=== PATIENT | male | born 1955 | race Caucasian/White ===

== ENCOUNTER 2016-10-18 07:11 | Emergency (ER) | payer BC ==
[~2016-10-18 07:11] MED LIST: ATIVAN0.5 MG PO; CELEBREX200 MG PO; COUMADIN10 MG; COUMADIN7.5 MG PO; FLOMAX 0.40.4 MG/CAP PO; LASIX20 M1 PO; LOVENOX 100100 MG/ML SQ; METOPROLOL SUC100 M1 PO; NORCO 325 MG-51 TA1 PO; NORCO 325 MG-51 TAB PO; PERCOCET 325 MG1 TA2 PO; TOPROL XL25 MG PO; ULTRAM 50MG TAB50 MG PO; WARFARIN SOD5 MG PO
[2016-10-18] MEDS ORDERED: PERCOCET 325 MG1 TA2 PO (11:17)
[2016-10-18] MEDS ORDERED: BACTRIM DS TAB1 EACH PO (11:17)
[2016-10-18 11:20] VITALS: BP 105/67
== END 2016-10-18 11:24 | disposition home or self-care (01) ==
LOC: ED 07:11
DX: L03.115 Cellulitis of right lower limb (principal); Z79.01 Long term (current) use of anticoagulants; Z86.718 Personal history of other venous thrombosis and embolism; I10 Essential (primary) hypertension; M54.5 Low back pain; G89.29 Other chronic pain; F17.210 Nicotine dependence, cigarettes, uncomplicated
CPT/HCPCS: J0696; J1885; J3010

== ENCOUNTER → 2017-05-02 | Outpatient (CLI) | payer BC ==
[~2017-05-02] MED LIST changes: +BACTRIM DS TAB1 EACH PO
== END ==
LOC: RAD 09:30
DX: I65.22 Occlusion and stenosis of left carotid artery (principal); Z87.891 Personal history of nicotine dependence

== ENCOUNTER 2017-09-23 20:44 | Emergency (ER) | payer BC ==
[~2017-09-23] VITALS: Ht 182.9 cm; Wt 81.8 kg
[2017-09-23] MEDS ORDERED: COUMADIN 1MG1 MG/TAB PO ×2 (21:07→21:08)
[2017-09-23 21:57] LABS: EOS # 0.2 (0.04-0.40); EOS % 3.1 % (0.0-4.0); HEMATOCRIT 49.4 % (42.0-52.0); HEMOGLOBIN 16.3 g/dL (13.5-18.0); LYMPH# 2.1 (1.50-4.00); MEAN CELL VOLUME 97 fl (78-100); MEAN CORPUSCULAR HEMOGLOBIN 32 pg (27-31); MEAN CORPUSCULAR HGB CONC 33 g/dL (33-37); MEAN PLATELET VOLUME 9.4 fl (7.4-10.4); MONO # 0.9 (0.20-0.80); NEU # 4.5 (1.40-6.50); PLATELET COUNT 196 K/mm3 (130-400); RED BLOOD COUNT 5.07 M/mm3 (4.20-5.60); RED CELL DISTRIBUTION WIDTH 14.9 % (11.5-14.5); WHITE BLOOD COUNT 7.8 K/mm3 (4.8-10.8)
[2017-09-23 22:00] LABS: BUN/CREATININE RATIO 14.5 (6.0-26.0); CALCIUM 8.7 mg/dL (8.4-10.2); POTASSIUM 4.7 mmol/L (3.6-5.0); TOTAL BILIRUBIN 0.7 mg/dL (0.2-1.3)
[2017-09-23 22:11] LABS: PROTHROMBIN TIME 25.4 SECONDS (9.0-12.0)
[2017-09-23 22:18] LABS: D-DIMER 0.6 mg/L FEU (0.15-0.50)
[2017-09-23 23:55] VITALS: BP 115/72
== END 2017-09-23 23:55 | disposition home or self-care (01) ==
LOC: ED 20:44
PROVIDERS: Physician Assistant
DX: M79.662 Pain in left lower leg (principal); Z79.01 Long term (current) use of anticoagulants; J43.9 Emphysema, unspecified; D68.2 Hereditary deficiency of other clotting factors; Z86.718 Personal history of other venous thrombosis and embolism; F17.210 Nicotine dependence, cigarettes, uncomplicated
CPT/HCPCS: Q9967

== ENCOUNTER 2017-09-24 12:21 | Emergency (ER) | payer BC ==
[~2017-09-24] VITALS: Ht 188 cm; Wt 94.5 kg
[2017-09-24 13:38] VITALS: BP 120/86
== END 2017-09-24 13:38 | disposition short-term general hospital (02) ==
LOC: ED 12:21
DX: I72.4 Aneurysm of artery of lower extremity (principal); Z79.01 Long term (current) use of anticoagulants; Z86.718 Personal history of other venous thrombosis and embolism; D68.2 Hereditary deficiency of other clotting factors; F17.210 Nicotine dependence, cigarettes, uncomplicated
CPT/HCPCS: J3010

== ENCOUNTER → 2017-09-24 | Outpatient (CLI) | payer BC ==
[2017-09-23 23:55] VITALS: BP 115/72
[~2017-09-24] MED LIST changes: +COUMADIN 1MG1 MG/TAB PO
== END ==
LOC: RAD 09:02
DX: I72.4 Aneurysm of artery of lower extremity (principal)
CPT/HCPCS: Q9967

== ENCOUNTER 2017-10-17 21:35 | Emergency (ER) | payer BC ==
[~2017-10-17] VITALS: Ht 188 cm; Wt 94.5 kg
[2017-10-17 22:23] LABS: HEMATOCRIT 41.3 % (42.0-52.0); HEMOGLOBIN 13.6 g/dL (13.5-18.0); MEAN CELL VOLUME 98 fl (78-100); MEAN CORPUSCULAR HEMOGLOBIN 32 pg (27-31); MEAN CORPUSCULAR HGB CONC 33 g/dL (33-37); PLATELET COUNT 252 K/mm3 (130-400); RED CELL DISTRIBUTION WIDTH 14.4 % (11.5-14.5); WHITE BLOOD COUNT 5.9 K/mm3 (4.8-10.8)
[2017-10-17 22:39] LABS: ALBUMIN 3.8 g/dL (3.5-5.0); BUN/CREATININE RATIO 17.9 (6.0-26.0); CALCIUM 8.5 mg/dL (8.4-10.2); POTASSIUM 3.9 mmol/L (3.6-5.0); TOTAL BILIRUBIN 0.3 mg/dL (0.2-1.3); TOTAL PROTEIN 7.2 g/dL (6.3-8.2)
[2017-10-17 22:40] LABS: PROTHROMBIN TIME 18.2 SECONDS (9.0-12.0)
[2017-10-17 22:54] LABS: LYMPHOCYTE 43 % (20-51); MONOCYTE 9 % (3-10); NEUTROPHILS 44 % (42-75)
[2017-10-17 23:03] LABS: D-DIMER 2.06 mg/L FEU (0.15-0.50)
[2017-10-17 23:30] LABS: URINE APPEARANCE CLEAR; URINE BILIRUBIN NEGATIVE (NEGATIVE); URINE BLOOD NEGATIVE (NEGATIVE); URINE COLOR YELLOW; URINE GLUCOSE NEGATIVE (NEGATIVE); URINE KETONE NEGATIVE (NEGATIVE); URINE LEUKOCYTE ESTERASE NEGATIVE (NEGATIVE); URINE MUCUS PRESENT (NOT PRESENT); URINE NITRATE NEGATIVE (NEGATIVE); URINE PROTEIN(semi-quant) TRACE mg/dL (NEGATIVE); URINE UROBILINOGEN NORMAL (NORMAL)
[2017-10-18 00:40] VITALS: BP 109/67
== END 2017-10-18 00:40 | disposition home or self-care (01) ==
LOC: ED 21:35
PROVIDERS: Nurse Practitioner Family
DX: R41.0 Disorientation, unspecified (principal); H53.8 Other visual disturbances; D68.2 Hereditary deficiency of other clotting factors; R79.1 Abnormal coagulation profile; Z79.01 Long term (current) use of anticoagulants; J43.9 Emphysema, unspecified; Z86.718 Personal history of other venous thrombosis and embolism; Z86.711 Personal history of pulmonary embolism; Z87.891 Personal history of nicotine dependence; F41.9 Anxiety disorder, unspecified; I10 Essential (primary) hypertension; Z79.899 Other long term (current) drug therapy
CPT/HCPCS: J1650; Q9967

== ENCOUNTER → 2018-01-13 | Outpatient (CLI) | payer BC | LOC: RAD 08:21 → LAB 08:21 | PROVIDERS: Urology | DX: R31.29 Other microscopic hematuria (principal) | CPT/HCPCS: Q9967 ==

== ENCOUNTER 2019-01-23 22:06 | Emergency (ER) | payer MEDICARE, OTHER ==
[~2019-01-23] VITALS: Ht 188 cm; Wt 92.8 kg
[~2019-01-23 22:06] MED LIST changes: +ASPIRIN ADULT L81 M3 PO; +CLOPIDOGREL75 M2 PO; +NICOTINE14 MG/24 H TD; +PROAIR HFA0.09 MG/AC IH; +WELLBUTRIN XL150 M2 PO
[2019-01-23 23:19] LABS: PROTHROMBIN TIME 31.9 SECONDS (9.0-12.0)
[2019-01-23 23:39] VITALS: BP 135/90
== END 2019-01-23 23:50 | disposition home or self-care (01) ==
LOC: ED 22:06
PROVIDERS: Physician Assistant
DX: S90.121A Contusion of right lesser toe(s) without damage to nail, initial encounter (principal); I10 Essential (primary) hypertension; Z79.01 Long term (current) use of anticoagulants; Z79.02 Long term (current) use of antithrombotics/antiplatelets; Z79.82 Long term (current) use of aspirin; W20.8XXA Other cause of strike by thrown, projected or falling object, initial encounter; Y92.009 Unspecified place in unspecified non-institutional (private) residence as the place of occurrence of the external cause

== ENCOUNTER 2021-06-27 14:05 | Emergency (ER) | payer MEDICARE, OTHER ==
[~2021-06-27] VITALS: Ht 188 cm; Wt 91.4 kg
[2021-06-27] MEDS ORDERED: FLOMAX0.4 MG PO (14:41)
[2021-06-27] MEDS ORDERED: VAZALORE81 MG PO (14:41)
[2021-06-27] MEDS ORDERED: ACETAMINOPHEN500 M5 PO (14:42)
[2021-06-27] MEDS ORDERED: WELLBUTRIN XL150 M2 PO (14:43)
[2021-06-27] MEDS ORDERED: ATORVASTATIN CA20 MG PO (14:43)
[2021-06-27] MEDS ORDERED: DEKAS PLUS SOF1 EACH PO (14:45)
[2021-06-27] MEDS ORDERED: NICODERM C21 MG/24 H TD (14:45)
[2021-06-27] MEDS ORDERED: JANTOVEN5 MG PO (15:00)
[2021-06-27 15:08] LABS: BASO # 0.03 K/mm3 (0.02-0.10); EOS # 0.29 K/mm3 (0.04-0.40); EOS % 5.5 % (0.0-4.0); HEMATOCRIT 41.3 % (42.0-52.0); HEMOGLOBIN 13.2 g/dL (13.5-18.0); MEAN CELL VOLUME 101 fl (78-100); MEAN CORPUSCULAR HEMOGLOBIN 32 pg (27-31); MEAN CORPUSCULAR HGB CONC 32 g/dL (33-37); MEAN PLATELET VOLUME 9.1 fl (7.4-10.4); MONO # 0.64 K/mm3 (0.20-0.80); NEU # 3.03 K/mm3 (1.40-6.50); PLATELET COUNT 198 K/mm3 (130-400); RED BLOOD COUNT 4.11 M/mm3 (4.20-5.60); RED CELL DISTRIBUTION WIDTH 15.1 % (11.5-14.5); WHITE BLOOD COUNT 5.3 K/mm3 (4.8-10.8)
[2021-06-27 16:06] LABS: PROTHROMBIN TIME 27.7 SECONDS (9.0-12.0)
[2021-06-27] MEDS ORDERED: TOPROL XL 25MG25 MG PO (18:07)
[2021-06-27 18:26] VITALS: BP 172/119
== END 2021-06-27 18:25 | disposition home or self-care (01) ==
LOC: ED 14:05
PROVIDERS: Physician Assistant
DX: R04.0 Epistaxis (principal); D68.51 Activated protein C resistance; I10 Essential (primary) hypertension; F17.220 Nicotine dependence, chewing tobacco, uncomplicated; Z79.82 Long term (current) use of aspirin; Z79.01 Long term (current) use of anticoagulants; Z86.711 Personal history of pulmonary embolism

== ENCOUNTER 2022-11-20 00:23 | Emergency (ER) | payer MEDICARE, MEDICAID ==
[~2022-11-20] VITALS: Ht 172.7 cm; Wt 90.0 kg
[~2022-11-20 00:23] MED LIST changes: +ACETAMINOPHEN500 M5 PO; +ATORVASTATIN CA20 MG PO; +DEKAS PLUS SOF1 EACH PO; +FLOMAX0.4 MG PO; +JANTOVEN5 MG PO; +NICODERM C21 MG/24 H TD; +TOPROL XL 25MG25 MG PO; +VAZALORE81 MG PO
[2022-11-20 00:46] LABS: BASO # 0.02 K/mm3 (0.02-0.10); EOS # 0.29 K/mm3 (0.04-0.40); EOS % 5.1 % (0.0-4.0); HEMATOCRIT 46.9 % (42.0-52.0); HEMOGLOBIN 15.2 g/dL (13.5-18.0); LYMPH# 1.66 K/mm3 (1.50-4.00); MEAN CELL VOLUME 98 fl (78-100); MEAN CORPUSCULAR HEMOGLOBIN 32 pg (27-31); MEAN CORPUSCULAR HGB CONC 32 g/dL (33-37); MEAN PLATELET VOLUME 9.1 fl (7.4-10.4); MONO # 0.67 K/mm3 (0.20-0.80); NEU # 3.07 K/mm3 (1.40-6.50); PLATELET COUNT 173 K/mm3 (130-400); RED BLOOD COUNT 4.78 M/mm3 (4.20-5.60); RED CELL DISTRIBUTION WIDTH 15.2 % (11.5-14.5); WHITE BLOOD COUNT 5.7 K/mm3 (4.8-10.8)
[2022-11-20 01:01] LABS: ALBUMIN 3.9 g/dL (3.4-4.8)
[2022-11-20 01:02] LABS: CALCIUM 9.5 mg/dL (8.3-10.5)
[2022-11-20 01:05] LABS: TOTAL BILIRUBIN 0.5 mg/dL (0.2-1.2)
[2022-11-20 01:37] LABS: PROTHROMBIN TIME 50.1 SECONDS (9.0-12.0)
[2022-11-20 02:00] VITALS: BP 133/95
== END 2022-11-20 02:00 | disposition home or self-care (01) ==
LOC: ED 00:23
PROVIDERS: Physician Assistant
DX: L76.21 Postprocedural hemorrhage of skin and subcutaneous tissue following a dermatologic procedure (principal); R79.1 Abnormal coagulation profile; Z79.01 Long term (current) use of anticoagulants

== ENCOUNTER → 2023-03-07 | Outpatient (CLI) | payer MEDICARE, MEDICAID | LOC: RAD 12:47 | DX: M19.041 Primary osteoarthritis, right hand (principal) ==

== ENCOUNTER → 2023-05-28 | Outpatient (CLI) | payer MEDICARE, MEDICAID | LOC: RAD 15:25 | DX: J43.9 Emphysema, unspecified (principal) ==

== ENCOUNTER → 2023-05-31 | Outpatient (CLI) | payer MEDICARE, MEDICAID | LOC: RAD 14:38 | DX: J43.9 Emphysema, unspecified (principal) ==

== ENCOUNTER → 2023-10-15 | Outpatient (CLI) | payer MEDICARE, MEDICAID ==
[~2023-10-15] MED LIST changes: +Iohexol 300 - 100 ML VIAL IV ONE
== END ==
LOC: RAD 14:48
DX: J43.9 Emphysema, unspecified (principal)
CPT/HCPCS: Q9967